=== PATIENT | female | born 1945 | race Caucasian/White ===

== ENCOUNTER 2022-11-14 09:02 | Day surgery (SDC) | payer OTHER, BC ==
[2022-11-10 14:57] VITALS: BMI 25.4
[2022-11-14 12:15] VITALS: RESP 16; TEMP 97.9
[2022-11-14 12:53] VITALS: BP 109/64; PULSE 74
== END 2022-11-14 12:35 | disposition home or self-care (01) ==
LOC: FASU-ENDO 09:02 → EDBD 10:45 → FASU-ENDO 12:35
PROVIDERS: ATTEND Internal Medicine Gastroenterology
PROC: 0DB98ZX Excision of Duodenum, Via Natural or Artificial Opening Endoscopic, Diagnostic (ICD-10-PCS; 2022-11-14)
PROC: 0DB78ZX Excision of Stomach, Pylorus, Via Natural or Artificial Opening Endoscopic, Diagnostic (ICD-10-PCS; 2022-11-14)
PROC: 0DJD8ZZ Inspection of Lower Intestinal Tract, Via Natural or Artificial Opening Endoscopic (ICD-10-PCS; principal; 2022-11-14 11:07)
DX: Z12.11 Encounter for screening for malignant neoplasm of colon (principal); K57.30 Diverticulosis of large intestine without perforation or abscess without bleeding; K29.50 Unspecified chronic gastritis without bleeding
CPT/HCPCS: 43239; G0121; 88305-TC; 88342-TC